=== PATIENT | female | born 1975 | race Caucasian/White ===

== ENCOUNTER 2020-10-06 18:07 | Emergency (ER) | payer SELFPAY ==
[2020-10-06] MEDS ORDERED: HYDROcodone/Acetaminophen 5/325 mg Tablet ONE (19:55)
--- NOTE | 2020-10-06 19:57 | RAD ---
LEFT FOOT THREE VIEWS: 10/06/20 COMPARISON: None. HISTORY: Pain and swelling. FINDINGS: Three view examination of the left foot demonstrates no displaced fracture or dislocation. IMPRESSION: No acute osseous abnormality. POS: MYRTLE
--- NOTE | 2020-10-06 19:59 | RAD ---
TWO VIEWS OF RIGHT FOREARM 10/06/20 COMPARISON: None. HISTORY: Pain, cellulitis. FINDINGS: No radiopaque foreign body or subcutaneous gas. No displaced fracture or dislocation. IMPRESSION: No acute osseous abnormality. POS: MYRTLE
--- NOTE | 2020-10-06 20:03 | RAD ---
FRONTAL AND LATERAL IMAGING OF THE RIGHT HUMERUS: 10/06/20 COMPARISON: None. HISTORY: Left sided pain and swelling, cellulitis. FINDINGS: Two view examination of the right humerus demonstrates no acute fracture or dislocation. No radiopaqu e foreign body or subcutaneous gas. IMPRESSION: No acute osseous abnormality. POS: MYRTLE
--- NOTE | 2020-10-06 21:22 | ULT ---
EXAM: Left lower extremity venous Doppler HISTORY: Left lower extremity pain and edema. Left foot swelling. FINDINGS: Grayscale, color-flow, Doppler evaluation, spectral analysis of the left lower extremity venous struc tures is performed with 2-D imaging. The left common femoral, superficial femoral, popliteal, posterior tibial, proximal greater saphenous and profunda femoral veins are imaged. There is normal luminal compressibility, flow, and augmentation in the visualized deep venous structu res of the left lower extremity. IMPRESSION: No evidence of a deep vein thrombosis in the visualized deep venous structures left lower extremity.
[2020-10-06] MEDS ORDERED: Ketorolac Tromethamine 30 MG/ML VIAL ONE (23:10)
== END 2020-10-06 23:34 | disposition home or self-care (01) ==
LOC: ERS 18:07
DX: M79.601 Pain in right arm (principal); M79.672 Pain in left foot; I10 Essential (primary) hypertension; J43.9 Emphysema, unspecified; Z79.899 Other long term (current) drug therapy
CPT/HCPCS: 96374; J1885